=== PATIENT | male | born 1935 | race Two or more races ===

== ENCOUNTER → 2017-03-06 | Outpatient (REF) | payer MEDICARE ==
[~2017-03-06] MED LIST: ASPI1TAB PO; ATOR40TA75 PO; FISH1000 PO; FLOM5CAP PO; GLIP1TAB49 PO; LISI-542 PO; METF500T13 PO; METO1TAB32 PO; MULT1TAB10 PO; VITA500T PO
[2017-03-06 19:43] LABS: CALCIUM OXALATE CRYSTALS MODERATE
== END ==
LOC: M SMT 17:24
PROVIDERS: ATTEND Nurse Practitioner Women's Health
DX: R31.0 Gross hematuria (principal); N32.89 Other specified disorders of bladder
CPT/HCPCS: 81001; 87086; 88108; G0463

== ENCOUNTER 2017-04-16 11:14 | Day surgery (SDC) | payer MEDICARE ==
[~2017-04-16] VITALS: Ht 175.3 cm; Wt 90.7 kg
[2017-04-16] MEDS ORDERED: LR 1,000 ML IV ONE (11:45)
[2017-04-16] MEDS ORDERED: ONDANSETRON 4MG/2ML VIAL (J2405) As Ordered ONE (13:04)
[2017-04-16] MEDS ORDERED: MIDAZOLAM INJ 2 MG/2 ML VIAL (J2250) As Ordered ONE (13:04)
[2017-04-16] MEDS ORDERED: LIDOCAINE 2% INJ 100 MG/5 ML SDV (FOR ANES.) As Ordered ONE (13:04)
[2017-04-16] MEDS ORDERED: PROPOFOL 200 MG/20 ML VIAL As Ordered ONE (13:04)
[2017-04-16] MEDS ORDERED: fentaNYL 100 MCG/2 ML INJECTION (J3010) As Ordered ONE ×2 (13:05→17:42)
[2017-04-16] MEDS ORDERED: PHENYLephrine HCL 500 MCG/5 ML (100MCG/ML) SYRINGE (J2370) As Ordered ONE ×2 (17:08→18:15)
[2017-04-16] MEDS ORDERED: SEVOFLURANE INHAL SOLN 250 ML BTL As Ordered ONE (17:19)
[2017-04-16] MEDS ORDERED: fentaNYL 250 MCG/5 ML INJECTION (J3010) As Ordered ONE (18:07)
[2017-04-16] MEDS ORDERED: ACETAMINOPHEN TAB 650MG DOSE (2X325MG) PO PRN (19:00)
[2017-04-16] MEDS ORDERED: LR 1,000 ML IV SCH (19:15)
[2017-04-16] MEDS ORDERED: ONDANSETRON 4MG/2ML VIAL (J2405) IV PRN (19:15)
[2017-04-16] MEDS ORDERED: fentaNYL 100 MCG/2 ML INJECTION (J3010) IV PRN (19:15)
[2017-04-16 20:20] VITALS: BP 145/87
--- NOTE | 2017-04-18 03:09 | RO ---
DATE OF PROCEDURE: 04/16/2017 PREPROCEDURE DIAGNOSIS: Bladder stone. POSTPROCEDURE DIAGNOSIS: Bladder stone. PROCEDURE: Cystoscopy, laser cystolitholapaxy. SURGEON: Dr. Nathanael Graham BLUEPRINT DUPLICATOR: None. ANESTHESIA: General. OPERATIVE INDICATIONS: This 31-year-old male was found to have a very large bladder stone on recent office cystoscopy. He was brought to the operating room today for removal of the stone. DESCRIPTION OF PROCEDURE: The patient was brought to the operating room and general anesthesia was induced. Prophylactic antibiotics were infused. He was then placed in the dorsal lithotomy position and prepped and draped in the usual sterile fashion. A rigid cystoscope was inserted into the urethral meatus and advanced to the bladder. Once within the bladder, the patient, of note, had a very large bladder stone, approximately 4 to 5 cm in size. He also had trilobar benign prostatic hyperplasia with prominent median lobe. At this time point, a 1000 Micron laser fiber was utilized to fragment the stone into several smaller pieces. All the fragments were removed using an Ellik evacuator. Once confirmed that all the fragments had been removed, the patient's bladder was emptied of all fluids and this marked the conclusion of the procedure. The patient was then taken out of the dorsal ltithotomy position, awakened from anesthesia and transported to the recovery room in stable condition. Estimated blood loss is 5 mL. Complications: None. Specimens: Bladder stone fragments. PLAN: The patient will followup in the clinic in a few weeks for a postoperative visit.
[2017-04-27 14:15] LABS: Uric Acid 10 % (.)
== END 2017-04-16 20:35 | disposition home or self-care (01) ==
LOC: M SDC 11:14
PROVIDERS: ATTEND Urology
DX: N21.0 Calculus in bladder (principal); I10 Essential (primary) hypertension; E78.4 Other hyperlipidemia; E11.9 Type 2 diabetes mellitus without complications; Z85.038 Personal history of other malignant neoplasm of large intestine; N40.0 Benign prostatic hyperplasia without lower urinary tract symptoms; Z79.82 Long term (current) use of aspirin; Z79.899 Other long term (current) drug therapy
CPT/HCPCS: 52318; 82360; 88300; C1769; J0690; J2250; J2370; J2405; J3010

== ENCOUNTER → 2018-12-31 | Outpatient (REF) | payer MEDICARE ==
[~2018-12-31] MED LIST changes: -ASPI1TAB PO; +ASPI81TA26 PO; +FLOM0.4C39 PO; -FLOM5CAP PO; -GLIP1TAB49 PO; +GLIP5TAB20 PO
[2018-12-31 18:29] LABS: APPEARANCE, URINE CLEAR (CLEAR); BACTERIA, URINE AUTO NEGATIVE (NEGATIVE); BILIRUBIN, URINE AUTO NEGATIVE (NEGATIVE); BLOOD, URINE BLOOD NEGATIVE (NEGATIVE); COLOR, URINE YELLOW (YELLOW); GLUCOSE, URINE (UA) AUTO NEGATIVE (NEGATIVE); KETONE, URINE AUTO NEGATIVE (NEGATIVE); LEUKOCYTE ESTERASE, URINE AUTO TRACE (NEGATIVE); MUCUS, URINE SMALL (NEGATIVE); NITRITE, URINE AUTO NEGATIVE (NEGATIVE); PROTEIN, URINE AUTO NEGATIVE (NEGATIVE); RBC, URINE AUTO 0 /HPF (0-3); SPECIFIC GRAVITY URINE AUTO 1.021 (1.002-1.035); SQUAMOUS EPITHELIAL CELL UR AU 0 /HPF (0-6); UROBILINOGEN, URINE AUTO 0.2 mg/dL (0.0-2.0); WBC, URINE AUTO 1 /HPF (0-3)
== END ==
LOC: M SMT 16:56
PROVIDERS: ATTEND Nurse Practitioner Women's Health
DX: N40.0 Benign prostatic hyperplasia without lower urinary tract symptoms (principal)
CPT/HCPCS: 51798; 81001; 87086; G0463